=== PATIENT | male | born 1945 | race Caucasian/White ===

== ENCOUNTER 2023-03-27 06:45 | Day surgery (SDC) | payer MEDICARE ==
[2023-03-26 12:49] VITALS: BP 129/89; PULSE 99; RESP 17
[2023-03-26 12:49] LABS: BASOPHILS # (AUTO) 0.09 K/uL (0.00-0.20); BASOPHILS % (AUTO) 0.8 % (0.0-5.0); EOSINOPHILS # (AUTO) 0.43 K/uL (0.00-0.70); EOSINOPHILS % (AUTO) 3.8 % (0.0-8.0); HEMATOCRIT 42.3 % (42-54); IMMATURE GRANULOCYTE ABSOLUTE 0.04 K/uL (0-1); LYMPHOCYTES # (AUTO) 1.7 K/uL (1.0-4.8); LYMPHOCYTES % (AUTO) 14.6 % (21.0-51.0); MEAN CORPUSCULAR HEMOGLOBIN 31.1 pg (27.0-33.0); MEAN CORPUSCULAR HGB CONC 33.3 g/dL (32.0-36.0); MEAN CORPUSCULAR VOLUME 93.4 fL (79-99); MONOCYTES # (AUTO) 1.1 K/uL (0.1-1.0); MONOCYTES % (AUTO) 9.2 % (3.0-13.0); NEUTROPHILS # (AUTO) 8.2 K/uL (1.8-7.7); NEUTROPHILS % (AUTO) 71.3 % (40.0-77.0); PLATELET COUNT (AUTO) 229 K/uL (130-400); RED BLOOD CELL COUNT(AUTO) 4.53 MIL/uL (4.50-6.20); RED CELL DISTRIBUTION WIDTH 13.7 % (11.0-15.5); WHITE BLOOD COUNT (AUTO) 11.5 K/uL (4.8-10.8)
[2023-03-26 13:05] LABS: CREATININE 1.1 mg/dL (0.5-1.5); POTASSIUM 3.5 mmol/L (3.5-5.1)
[2023-03-26 13:36] LABS: INR 1.06 (0.85-1.15); PROTHROMBIN TIME 12.3 SEC (9.6-11.6)
[2023-03-26 13:37] LABS: PARTIAL THROMBOPLASTIN TIME 30.4 SEC (26.3-35.5)
[~2023-03-27] VITALS: Ht 177.8 cm; Wt 100.1 kg
[2023-03-27] VITALS (18 sets, daily range): BP systolic 100–132; BP diastolic 62–98; PULSE 46–104; RESP 13–17
[~2023-03-27 06:45] MED LIST: AMLO-257 PO; APIX5TAB PO; ASPI-1197 PO; ATOR20TA65 PO; CALC-1125 PO; HYDR25TA PO; KRIL1CAP PO; LEUP45SY IM; LISI40TA9 PO; MAGN400T40 PO; METO-408 PO; MULT-1367 PO; OMEP20CA12 PO; PROP225C8 PO
[2023-03-27] MEDS: 0.9%NACL 1000ML 1,000 ML IV ONE (08:11)
[2023-03-27] MEDS ORDERED: FLUMAZENIL 0.1MG/1ML 5ML VIAL IV ONE (08:19)
[2023-03-27] MEDS ORDERED: NALOXONE HCL 0.4 MG/1 ML ML ONE (08:19)
[2023-03-27] MEDS ORDERED: LIDOCAINE HCL 2% VISCOUS 15 ML UDCUP PO ONE (08:30)
[2023-03-27] MEDS: LIDOCAINE HCL 2% VISCOUS 15 ML UDCUP PO ONE (08:54)
[2023-03-27] MEDS: MIDAZOLAM HCL 1 MG/ML 2ML VIAL IVP ONE (12:25)
[2023-03-27] MEDS: FENTANYL CITRATE PF 50 MCG/1 ML 2ML VIAL IVP ONE (12:26)
== END 2023-03-27 12:10 | disposition home or self-care (01) ==
LOC: DAH 06:45
PROVIDERS: ATTEND Internal Medicine Cardiovascular Disease
DX: I48.19 Other persistent atrial fibrillation (principal); I08.1 Rheumatic disorders of both mitral and tricuspid valves; I49.1 Atrial premature depolarization; G47.30 Sleep apnea, unspecified; K59.00 Constipation, unspecified; E78.5 Hyperlipidemia, unspecified; M17.0 Bilateral primary osteoarthritis of knee; Z98.890 Other specified postprocedural states; Z90.79 Acquired absence of other genital organ(s); Z79.899 Other long term (current) drug therapy; Z86.73 Personal history of transient ischemic attack (TIA), and cerebral infarction without residual deficits
CPT/HCPCS: 80048; 85025; 85610; 85730; 36415; 92960; 93325; 93312; 93005 ×2; J3010; J7030; J2250; A4615; A4215; A4223 ×3; A4657; A7002; A4222; A4221; A4663; A4216; A4606; 99152; J2310; J3490; G0500

== ENCOUNTER 2023-04-25 05:42 | Observation (INO) | payer MEDICARE ==
[2023-04-22 11:34] LABS: BASOPHILS % (AUTO) 1.1 % (0.0-5.0); EOSINOPHILS # (AUTO) 0.41 K/uL (0.00-0.70); EOSINOPHILS % (AUTO) 4.6 % (0.0-8.0); HEMATOCRIT 41.5 % (42-54); IMMATURE GRANULOCYTE ABSOLUTE 0.03 K/uL (0-1); LYMPHOCYTES # (AUTO) 1.7 K/uL (1.0-4.8); LYMPHOCYTES % (AUTO) 18.5 % (21.0-51.0); MEAN CORPUSCULAR HEMOGLOBIN 30.5 pg (27.0-33.0); MEAN CORPUSCULAR VOLUME 92.4 fL (79-99); MONOCYTES % (AUTO) 10.7 % (3.0-13.0); NEUTROPHILS # (AUTO) 5.8 K/uL (1.8-7.7); NEUTROPHILS % (AUTO) 64.8 % (40.0-77.0); PLATELET COUNT (AUTO) 201 K/uL (130-400); RED BLOOD CELL COUNT(AUTO) 4.49 MIL/uL (4.50-6.20); RED CELL DISTRIBUTION WIDTH 13.5 % (11.0-15.5); WHITE BLOOD COUNT (AUTO) 8.9 K/uL (4.8-10.8)
[2023-04-22 11:38] LABS: POTASSIUM 3.9 mmol/L (3.5-5.1)
[2023-04-22 12:09] LABS: PARTIAL THROMBOPLASTIN TIME 30.2 SEC (26.3-35.5)
[2023-04-22 12:17] LABS: INR 1.22 (0.85-1.15)
[2023-04-22 12:27] VITALS: BP 145/70; PULSE 82; RESP 17
[~2023-04-25] VITALS: Ht 180.3 cm; Wt 107.0 kg
[2023-04-25] VITALS (20 sets, daily range): BP systolic 91–138; BP diastolic 47–113; PULSE 52–80; RESP 10–31; O2SAT 93–100
[~2023-04-25 05:42] MED LIST changes: -CALC-1125 PO; +CALC-1294 PO; +CINN500C PO; +DOCU100C33 PO; +FLAX100020 PO; -KRIL1CAP PO; +KRIL500C PO; -LEUP45SY IM; +MORINGA PO; +PSYL0.525 PO; +TUMERIC PO
[2023-04-25] MEDS ORDERED: LIDOCAINE PF 100MG/5ML (2%) SYRINGE 5ML ONE (06:35)
[2023-04-25] MEDS ORDERED: DEXAMETHASONE SOD PHOSPHATE 10MG/ML 1ML VIAL ONE (06:35)
[2023-04-25] MEDS ORDERED: GLYCOPYRROLATE 0.2 MG/ML 5 ML VIAL ONE (06:36)
[2023-04-25] MEDS ORDERED: MIDAZOLAM HCL 1 MG/ML 2ML VIAL ONE (06:36)
[2023-04-25] MEDS ORDERED: ONDANSETRON 4MG INJ ONE (06:36)
[2023-04-25] MEDS ORDERED: SUCCINYLCHOLINE CHLORIDE 20 MG/ML 10 ML VIAL ONE (06:36)
[2023-04-25] MEDS ORDERED: FENTANYL CITRATE PF 50 MCG/1 ML 2ML VIAL ONE ×2 (06:37→06:39)
[2023-04-25] MEDS ORDERED: PROPOFOL 10 MG/ML 20ML VIAL IV ONE ×2 (06:37→06:38)
[2023-04-25] MEDS ORDERED: ROCURONIUM BROMIDE 10MG/1ML 5ML VL ONE (06:37)
[2023-04-25] MEDS ORDERED: NEOSTIGMINE METHYLSULFATE 1MG/ML IV ONE (06:37)
[2023-04-25] MEDS: 0.9%NACL 1000ML 1,000 ML IV ONE (06:40)
[2023-04-25] MEDS ORDERED: PHENYLEPHRINE HCL 10 MG/ML 1ML VIAL IV ONE (06:42)
[2023-04-25] MEDS ORDERED: HEPARIN 10,000 UNIT/10ML (1,000 UNIT/ML) VIAL ONE ×2 (07:20→08:31)
[2023-04-25] MEDS ORDERED: LIDOCAINE HCL 400MG/20ML VIAL ONE (07:20)
[2023-04-25] MEDS ORDERED: PROTAMINE SULFATE 10 MG/ML 5 ML VIAL ONE (11:30)
[2023-04-25] MEDS: PROPAFENONE HCL 150 MG TABLET PO SCH (18:23)
[2023-04-25] MEDS: SUGAMMADEX SODIUM 200 MG/2 ML VIAL IV ONE (19:00)
[2023-04-25] MEDS: MULTIVITAMIN TABLET PO SCH (20:26)
[2023-04-25] MEDS: APIXABAN 5 MG TABLET PO SCH (20:26)
[2023-04-25] MEDS: MAGNESIUM OXIDE 400 MG TABLET PO SCH (20:26)
[2023-04-25] MEDS: ATORVASTATIN 20 MG TABLET PO SCH (20:26)
[2023-04-25] MEDS: DOCUSATE SODIUM 100 MG CAP PO SCH (20:26)
[2023-04-25] MEDS: ZOLPIDEM TARTRATE 5 MG TAB PO SCH (20:32)
[2023-04-25] MEDS: VITAMIN D3 PO SCH (20:35)
[2023-04-25] MEDS: CALCIUM CARBONATE PO SCH (20:35)
[2023-04-25] MEDS: FLAXSEED OIL 1000 MG PO SCH (20:36)
[2023-04-25] MEDS: MORINGA PO SCH (20:36)
[2023-04-25] MEDS: PSYLLIUM HUSK 0.52 GM PO SCH (20:36)
[2023-04-25] MEDS: TUMERIC PO SCH (20:36)
[2023-04-25] MEDS ORDERED: PROPAFENONE HCL 150 MG TABLET PO SCH (21:00)
[2023-04-26] VITALS: BP 124/62; PULSE 64; RESP 18
[2023-04-26 04:00] VITALS: PULSE 58; RESP 17
[2023-04-26 06:00] VITALS: BP 127/63; PULSE 77; RESP 20
[2023-04-26 07:00] VITALS: PULSE 69; RESP 12
[2023-04-26 07:25] VITALS: BP 116/69; PULSE 66; RESP 16
[2023-04-26 08:00] VITALS: O2SAT 100
[2023-04-26] MEDS ORDERED: KRILL OIL 500 MG PO SCH (09:00)
[2023-04-26] MEDS ORDERED: HYDROCHLOROTHIAZIDE 25 MG TABLET PO SCH (09:00)
[2023-04-26] MEDS ORDERED: PANTOPRAZOLE 40 MG TAB DR PO SCH (09:00)
[2023-04-26] MEDS ORDERED: METOPROLOL SUCCINATE 25 MG TAB.SR.24H PO SCH (09:00)
[2023-04-26] MEDS ORDERED: ASPIRIN 81MG CHEW TAB PO SCH (09:00)
[2023-04-26] MEDS ORDERED: AMLODIPINE 5 MG TAB PO SCH (09:00)
[2023-04-26] MEDS ORDERED: LISINOPRIL 40 MG TABLET PO SCH (12:00)
[2023-04-26] MEDS ORDERED: (Cinnamon Bark (Cinnamon) 1,000 MG) PO SCH (12:00)
== END 2023-04-26 09:30 | disposition home or self-care (01) ==
LOC: DAH 05:42 → DAHIP 05:43 → DAH 05:43 → 2CV 17:47
PROVIDERS: ADMIT Internal Medicine Cardiovascular Disease; ATTEND Internal Medicine Cardiovascular Disease
DX: I48.0 Paroxysmal atrial fibrillation (principal); I47.19 Other supraventricular tachycardia; I48.92 Unspecified atrial flutter; E78.5 Hyperlipidemia, unspecified; K59.00 Constipation, unspecified; Z79.899 Other long term (current) drug therapy; Z98.890 Other specified postprocedural states; Z86.73 Personal history of transient ischemic attack (TIA), and cerebral infarction without residual deficits
CPT/HCPCS: 80048; 85025; 85610; 85730; 36415 ×2; 93005; 93655; 93656; 93657 ×3; 85347 ×7; 94660; A4344; C1894 ×3; C1732 ×3; C1893; A4215 ×2; C1731; A4649 ×2; G0378 ×20; J3010 ×2; J3490 ×3; J1100; J0330; J7030; J2001; J2720; J1644 ×4; J2250; J2704 ×2; J2405; J2710; J2371; A4223 ×3; A4222; A4221; A4663; A4216; A4606